=== PATIENT | male | born 1960 | race Caucasian/White ===

== ENCOUNTER 2025-05-12 09:23 | Emergency (ER) | payer MEDICAID, SELFPAY ==
[~2025-05-12] VITALS: Ht 180.3 cm; Wt 88.6 kg
[~2025-05-12 09:23] MED LIST: CARB-92 PO; FOLI-130 PO; MIRT-89 PO; THERAGRAN M1 TA1 PO; THIAMINE HCL100 MG PO
[2025-05-12 09:32] VITALS: TEMP 97.5
[2025-05-12 10:16] LABS: PLATELET COUNT (AUTO) 300 K/uL (150-450); RED BLOOD CELL COUNT(AUTO) 4.86 MIL/uL (4.50-5.90); RED CELL DISTRIBUTION WIDTH 13.8 % (11.5-14.5); WHITE BLOOD COUNT (AUTO) 5.5 K/uL (4.5-11.0)
[2025-05-12 10:26] LABS: CALCIUM, TOTAL 9.0 mg/dL (8.8-10.5); CREATININE 0.87 mg/dL (0.60-1.30); GLOMERULAR FILTR. RATE CALC > 60 mL/min (>60); GLUCOSE,RANDOM 91 mg/dL (70-110); SODIUM SERUM 141 mmol/L (136-145); UREA NITROGEN, BLOOD 18 mg/dL (7-18)
[2025-05-12 10:35] LABS: TROPONIN I-HIGH SENSITIVITY 12 ng/L (<76)
[2025-05-12] MEDS: FAMOTIDINE 20 MG TABLET PO ONE (11:04)
[2025-05-12] MEDS: MAG HYDROX/ALUMINUM HYD/SIMETH ES 30 ML SUSPENSION UDCUP PO ONE (11:04)
[2025-05-12 11:39] VITALS: BP 120/79; PULSE 79; RESP 18; O2SAT 99
[2025-05-12] MEDS ORDERED: FAMO20 PO (13:22)
== END 2025-05-12 13:31 | disposition home or self-care (01) ==
LOC: EMS 09:36
DX: K27.9 Peptic ulcer, site unspecified, unspecified as acute or chronic, without hemorrhage or perforation (principal); F41.9 Anxiety disorder, unspecified; F10.90 Alcohol use, unspecified, uncomplicated; Z79.899 Other long term (current) drug therapy; Y90.8 Blood alcohol level of 240 mg/100 ml or more
CPT/HCPCS: 99285; 71045; 80048; 84484; 85025; 36415; 93005; G0480